=== PATIENT | female | born 1995 | race Caucasian/White ===

== ENCOUNTER 2020-06-09 09:54 | Outpatient (CLI) | payer OTHER, SELFPAY ==
[2020-06-09 11:05] LABS: Alanine Aminotransferase 35 U/L (4-35); Albumin Level 3.4 g/dL (3.5-5.1); Alkaline Phosphatase 78 U/L (38-126); Anion Gap 3 mmol/L (8-16); Aspartate Amino Transferase 27 U/L (14-36); Bilirubin,Total 0.2 mg/dL (0.2-1.3); Blood Urea Nitrogen 6 mg/dL (7-17); Calcium 8.9 mg/dL (8.4-10.2); Carbon Dioxide 24 mmol/L (22-30); Chloride 109 mmol/L (98-107); Estimated Glomerular Filt Rate > 60; Glucose 96 mg/dL (65-105); Potassium 4.1 mmol/L (3.4-5.0); Sodium 136 mmol/L (137-145)
== END 2020-06-09 09:55 | disposition home or self-care (01) ==
PROVIDERS: PCP Obstetrics & Gynecology; Visit Provider Obstetrics & Gynecology
DX: O16.9 Unspecified maternal hypertension, unspecified trimester (principal); Z3A.00 Weeks of gestation of pregnancy not specified
CPT/HCPCS: 36415; 80053

== ENCOUNTER 2020-09-30 00:11 | Inpatient (IN) | payer OTHER, SELFPAY ==
[2020-09-30] VITALS (40 sets, daily range): BP systolic 98–168; BP diastolic 37–104; PULSE 70–100; RESP 18; TEMP 36.1–36.6; BMI 44.1
--- NOTE | 2020-09-30 00:11 | LDADM ---
This patient, Libra Capellan, was admitted to Labor/Delivery/Recovery 109 on 09/30/20 at 00:11. Plans for labor, pain management and were discussed with patient. Patient/family oriented to hospital policies and general routines including ID bracelet, bed and alarms, visiting hours, pain management, procedures, bathroom and other care routines, personal items, smoking policy, room service/diet and guest tray routines, infant security routines, and visiting hours. Patient/Family are encouraged to report perceived risks to care and to ask questions if they do not understand what they are told or what they should do. See OBIX for further documentation.
[2020-09-30 01:25] LABS: Basophils Percent Auto 0.2 % (0.2-1.2); Eosinophils Absolute Auto 0.1 K/mm3 (0-0.3); Eosinophils Percent Auto 0.3 % (0-4.4); Hematocrit 35.4 % (37.0-47.0); Hemoglobin 11.5 g/dL (12.0-15.0); Immature Granulocyte Absolute 0.06 K/mm3 (0.00-0.031); Immature Granulocyte Percent A 0.3 % (0-0.5); Lymphocytes Absolute Auto 2.72 K/mm3 (0.9-3.2); Lymphocytes Percent Auto 15.5 % (18.3-44.2); Mean Corpuscular HGB Conc 32.5 g/dl (32-36); Mean Corpuscular Hemoglobin 29.6 pg (26-34); Mean Corpuscular Volume 91.2 fl (80-100); Monocytes Absolute Auto 0.7 K/mm3 (0.1-0.6); Monocytes Percent Auto 4.2 % (2.6-8.5); Neutrophils Percent Auto 79.5 % (45.5-73.1); Platelet Count Result 256 k/mm3 (150-375); Red Blood Count 3.88 M/mm3 (4.2-5.4); Red Cell Distribution Width 13.7 % (11.5-14.5); White Blood Count 17.6 K/mm3 (4.5-10.0)
[2020-09-30] MEDS: LACTATED RINGERS 1,000 ML 125 ML IV CONT ×2 (01:37→11:24)
[2020-09-30 01:41] LABS: Glucose Point of Care 104 mg/dl (65-105)
[2020-09-30 01:46] LABS: Amphetamine Screen Urine Negative (Negative); Barbiturate Screen Urine Negative (Negative); Benzodiazepines Screen Urine Negative (Negative); Cannabinoid Screen Urine Positive (Negative); Cocaine Screen Urine Negative (Negative); Methadone Screen Urine Negative (Negative); Opiate Screen Urine Negative (Negative); Phencyclidine Screen Urine Negative (Negative)
[2020-09-30] MEDS: DINOPROSTONE 10 MG VAG INSERT VAGINAL ×2 (01:58→17:38)
[2020-09-30] MEDS: AMPICILLIN 2 GM/NS 100 ML 2 GM/100 ML BAG IVPB (06:26)
--- NOTE | 2020-09-30 07:42 | WPDOBADMIT ---
Obstetrics - Admit Note Admission Note: record reviewed. No pertinent additions to the history and/or any subsequent changes in the physical findings that are not consistent with the expected course of the were found. Additions to the history and/or subsequent changes in the physical findings follow. None. cHTN and GDM. somewhat noncompliant, missed appts, refused insulin. FHT category 1. cervidil in. GBS pos, just started amp. AROM and low dose pit after cervidil out.
[2020-09-30 08:09] LABS: Glucose Point of Care 91 mg/dl (65-105)
[2020-09-30 08:09] LABS: Glucose Point of Care 93 mg/dl (65-105)
[2020-09-30 08:45] LABS: Rapid Plasma Reagin Non-Reactive (NonReactive)
[2020-09-30] MEDS: AMPICILLIN 1 GM/NS 50 ML 1 GM/50 ML BAG IVPB ×4 (10:25→22:58)
[2020-09-30 12:17] LABS: Glucose Point of Care 90 mg/dl (65-105)
--- NOTE | 2020-09-30 13:34 | WPDANESEPP ---
Anes - Eval Pre Procedure Procedure: labor epidural Date/Time: 09/30/20 13:34 Surgeon: Corby Preop Diagnosis: Pain during labor Pre Op Diagnosis: IOL Patient Data Age: 25 Gender: F Height: 5 ft 3 in Weight: 113 kg Last Vital Signs Temp 36.6 C 09/30/20 06:30 Pulse 100 09/30/20 13:00 BP 139/104 H 09/30/20 13:00 Allergies Allergy/AdvReac Type Severity Reaction Status Date / Time No Known Allergies Allergy Mild Verified 09/17/20 13:36 Home Medications Medication Instructions Recorded Confirmed Type prenat.vits,pierre,amq-hlgy-vxqpb 1 tablet PO DAILY 09/17/20 09/17/20 History [ #2] Laboratory Tests 09/30/20 09/30/20 09/30/20 01:11 01:11 01:11 WBC 17.6 K/mm3 H K/mm3 (4.5-10.0) RBC 3.88 M/mm3 L M/mm3 (4.2-5.4) Hgb 11.5 g/dL L g/dL (12.0-15.0) Hct 35.4 % L % (37.0-47.0) MCV 91.2 fl fl (80-100) MCH 29.6 pg pg (26-34) MCHC 32.5 g/dl g/dl (32-36) RDW 13.7 % % (11.5-14.5) Plt Count 256 k/mm3 k/mm3 (150-375) MPV 11.0 fl H fl (7.4-10.4) Immature Gran % (Auto) 0.3 % % (0-0.5) Neut % (Auto) 79.5 % H % (45.5-73.1) Lymph % (Auto) 15.5 % L % (18.3-44.2) Crook % (Auto) 4.2 % % (2.6-8.5) Eos % (Auto) 0.3 % % (0-4.4) Baso % (Auto) 0.2 % % (0.2-1.2) Lymph # (Auto) 2.72 K/mm3 K/mm3 (0.9-3.2) Crook # (Auto) 0.7 K/mm3 H K/mm3 (0.1-0.6) Eos # (Auto) 0.1 K/mm3 K/mm3 (0-0.3) Baso # (Auto) 0.0 K/mm3 K/mm3 (0.0-0.1) Abs Immat Gran (auto) 0.06 K/mm3 H K/mm3 (0.00-0.031) Absolute Neuts (auto) 14.0 K/mm3 H K/mm3 (1.3-6.7) Absolute Nucleated RBC 0.0 K/mm3 K/mm3 (0.0-0.012) Nucleated RBC % 0.0 % % (0.0-0.2) POC Capillary Glucose Urine Opiates Screen Urine Methadone Screen Ur Barbiturates Screen Ur Phencyclidine Scrn Ur Amphetamine Screen U Benzodiazepines Scrn Urine Cocaine Screen U Cannabinoids Screen RPR Non-reactive (NonReactive) Blood Type O Positive Antibody Screen Negative 09/30/20 09/30/20 09/30/20 01:11 01:36 04:06 WBC RBC Hgb Hct MCV MCH MCHC RDW Plt Count MPV Immature Gran % (Auto) Neut % (Auto) Lymph % (Auto) Crook % (Auto) Eos % (Auto) Baso % (Auto) Lymph # (Auto) Crook # (Auto) Eos # (Auto) Baso # (Auto) Abs Immat Gran (auto) Absolute Neuts (auto) Absolute Nucleated RBC Nucleated RBC % POC Capillary Glucose 104 mg/dl mg/dl 93 mg/dl mg/dl (65-105) (65-105) Urine Opiates Screen Negative (Negative) Urine Methadone Screen Negative (Negative) Ur Barbiturates Screen Negative (Negative) Ur Phencyclidine Scrn Negative (Negative) Ur Amphetamine Screen Negative (Negative) U Benzodiazepines Scrn Negative (Negative) Urine Cocaine Screen Negative (Negative) U Cannabinoids Screen Positive A (Negative) RPR Blood Type Antibody Screen 09/30/20 09/30/20 08:06 12:11 WBC RBC Hgb Hct MCV MCH MCHC RDW Plt Count MPV Immature Gran % (Auto) Neut % (Auto) Lymph % (Auto) Crook % (Auto) Eos % (Auto) Baso % (Auto) Lymph # (Auto) Crook # (Auto) Eos # (Auto) Baso # (Auto)
[2020-09-30 17:15] LABS: Glucose Point of Care 88 mg/dl (65-105)
[2020-09-30] MEDS: ACETAMINOPHEN 500 MG TABLET 1000 MG PO (22:57)
[2020-09-30] MEDS: ZOLPIDEM TARTRATE (*CRX) 5 MG TABLET PO (22:58)
[2020-09-30 23:37] LABS: Glucose Point of Care 80 mg/dl (65-105)
[2020-10-01] VITALS (127 sets, daily range): BP systolic 71–149; BP diastolic 23–98; PULSE 64–124; RESP 16–18; TEMP 36.2–36.8; O2SAT 95–100
[2020-10-01 02:49] LABS: Glucose Point of Care 83 mg/dl (65-105)
[2020-10-01] MEDS: AMPICILLIN 1 GM/NS 50 ML 1 GM/50 ML BAG IVPB ×3 (02:53→10:34)
[2020-10-01 06:19] LABS: Glucose Point of Care 88 mg/dl (65-105)
[2020-10-01] MEDS: OXYTOCIN 30 UNITS/NS 500 ML 30 UNITS/500 ML BAG IV CONT (07:04)
[2020-10-01] MEDS: fentaNYL CITRATE INJ (*CRX) 100 MCG/2 ML VIAL IV PUSH (08:12)
[2020-10-01] MEDS: LACTATED RINGERS 1,000 ML 999 ML IV CONT (08:13)
--- NOTE | 2020-10-01 08:13 | PM.OBPNLAB ---
Pain Control Date/time seen: 10/01/20 08:13 VSS Pt feeling contractions Cervix 3-4/50/-3 AROM moderate amount of clear odorless fluid Anticipate
[2020-10-01 10:01] LABS: Glucose Point of Care 87 mg/dl (65-105)
[2020-10-01 13:46] LABS: Glucose Point of Care 69 mg/dl (65-105)
--- NOTE | 2020-10-01 14:27 | P.PCNOB_ITS ---
OB - Delivery Note Procedure Delivery date: 10/01/20 Procedure: vaginal delivery events: Gestational Diabetes and Induced HTN Intrapartal events: None Induction method: AROM, per pitocin protocol and per cervidil protocol Delivery monitor: external FHT and external uterine Route of delivery: Laceration Description: None Specimen: Yes Quantitative Blood Loss (ml): 65 Anesthesia type: Epidural Disposition: floor Baby Date of : 10/01/20 Time of : 14:19 Weeks of gestation at delivery: 38 Infant gender: Female presentation: vertex cord vessel description: 3 Vessels and Clamped/Cut score one minute: 9 score five minutes: 9 Narrative: pick up and delivery driver, precipitous, cord clamped and cut as CNM arrived, placenta delivered w/o complication and mother and baby in stable condition
[2020-10-01] MEDS: OXYTOCIN 30 UNITS/NS 500 ML 30 UNITS/500 ML BAG 125 UNITS IV CONT (15:02)
[2020-10-01] MEDS: OXYTOCIN 10 UNITS/ML VIAL 20 UNITS IM (16:05)
[2020-10-01] MEDS: IBUPROFEN 600 MG TABLET PO (16:13)
--- NOTE | 2020-10-01 17:30 | PC.NURSE ---
Patient transferred to post room # 292 via wheelchair. Support person present. Oriented to unit, room, information board, rooming in, admission packet and security measures. Patient verbalizes understanding. PT received instructions and education through one to one discussion and mom baby care guide and demonstration. PT and fob recipients of such instructions. no barriers to learning identified
[2020-10-02 04:50] VITALS: BP 131/84; PULSE 88; RESP 16; TEMP 36.3; O2SAT 100
[2020-10-02] MEDS: IBUPROFEN 600 MG TABLET PO ×3 (04:57→17:19)
[2020-10-02 05:50] LABS: Hematocrit 32.8 % (37.0-47.0); Hemoglobin 10.8 g/dL (12.0-15.0)
--- NOTE | 2020-10-02 07:00 | PC.NURSE ---
PT introductions made and plan of care discussed per post , pain management, breast feeding, daily care activities. PT verbalized understanding of such care. PT received instructions and education per shift through one to one discussion, demonstration, mom baby care guide. PT shows no barriers to learning. She and her significant other will be recipients of education through the shift.
--- NOTE | 2020-10-02 07:42 | PM.OBPNVD ---
OB - PN: Subj Subjective Date/time seen: 10/02/20 07:42 Patient comments: no complaints baby status: doing well OB - PN: Obj Data Labs CBC & Chem 7: 10/02/20 05:02 Labs: Laboratory Results - last 24 hr 10/01/20 10/01/20 10/02/20 09:58 13:41 05:02 Hgb 10.8 L Hct 32.8 L POC Capillary Glucose 87 69 OB - PN A/P Plan day: 1 Plan: routine care Time Spent With Patient Time: Total time spent is greater than 50% in coordination of care (as documented) at patient's floor/unit and/or counseling patient: Time with patient: less than 15 minutes Review of Systems Review of Systems: All systems reviewed & are unremarkable except as noted in HPI and below Exam Narrative: Exam Narrative: Fundus firm and vaginal flow controlled. No lower ext redness, warmth, or edema. Negative homans. Denies h/a, v/d or e/p. Reflexes normal. Const: General: comfortable Chest: Breast/axilla inspection: normal inspection of the breasts Resp: Effort & Inspection: normal respiratory effort Cardio: Rate: regular rate GI: GI Palp: Yes Soft to palpation Psych: Appearance: grossly normal Affect: normal affect Attitude: cooperative Thought content: Yes Normal thought content present Judgement: Good judgement present (Psych)
[2020-10-02 08:20] VITALS: BP 130/76; PULSE 83; RESP 18; TEMP 36.7; O2SAT 100
[2020-10-02 11:00] VITALS: PULSE 82; RESP 18; O2SAT 98
[2020-10-02 11:40] VITALS: BP 128/64; PULSE 82; RESP 18; TEMP 36.7; O2SAT 98
[2020-10-02] MEDS: DOCUSATE SODIUM 100 MG CAPSULE PO ×2 (11:45→17:20)
--- NOTE | 2020-10-02 15:50 | WPDANLDPN2 ---
Anes-Prog Note L&D Date/Time: 10/02/20 15:50 Comfortable throughout: labor and delivery Neuraxial method: epidural Epidural/Spinal procedure site: clean & non-tender Neuro status: Neuro function grossly intact. Cardiovascular status: normal Respiratory status: normal Airway patency: baseline Mental status: baseline Post-Op hydration status: normal Vital Signs: Last Vital Signs Temp 36.7 C 10/02/20 11:40 Pulse 82 10/02/20 11:40 Resp 18 10/02/20 11:40 BP 128/64 10/02/20 11:40 Pulse Ox 98 10/02/20 11:40 Pain score (VAS): 0/10. Patient resting in bed at time of assessment, appears comfortable. I/O: Intake & Output 10/01/20 10/02/20 10/02/20 23:59 07:59 15:59 Intake Total 240 Output Total 450 Balance -450 240 Post-procedural complaints: none Patient feedback: Patient satisfied with anesthetic care.
[2020-10-02] MEDS: TETANUS,DIPHTHERIA,AC PERTUSSIS ADULT (0.5 ML) BOOSTRIX IM (18:05)
[2020-10-02 19:30] VITALS: BP 146/87; PULSE 85; RESP 16; TEMP 36.7; O2SAT 99
[2020-10-03] MEDS: IBUPROFEN 600 MG TABLET PO (04:29)
--- NOTE | 2020-10-03 07:29 | WPDOBADMIT ---
Obstetrics - Admit Note Admission Note: record reviewed. No pertinent additions to the history and/or any subsequent changes in the physical findings that are not consistent with the expected course of the were found. MIL GDM SVE 3-4/-2 AROM large amount of clear odorless fluid Additions to the history and/or subsequent changes in the physical findings follow. None.
--- NOTE | 2020-10-03 07:43 | PM.OBPNVD ---
OB - PN: Subj Subjective Date/time seen: 10/03/20 07:43 Patient comments: no complaints baby status: doing well OB - PN: Obj Data Labs CBC & Chem 7: 10/02/20 05:02 OB - PN A/P Plan day: 2 Plan: routine care and discharge home Time Spent With Patient Time: Total time spent is greater than 50% in coordination of care (as documented) at patient's floor/unit and/or counseling patient: Review of Systems Review of Systems: All systems reviewed & are unremarkable except as noted in HPI and below Exam Const: General: cooperative Nutritional Appearance: average body habitus Limitations: no limitations Psych: Affect: normal affect Attitude: cooperative Thought process: Normal thought process present Thought content: Yes Normal thought content present Insight: Good insight present (Psych) Judgement: Good judgement present (Psych)
--- NOTE | 2020-10-03 07:45 | P.DS_ITS ---
DS: Admitting Diagnosis Admitting Diagnosis Admitting Diagnosis: [facility] OB - DS: Summary OB Procedures : None OB Procedures Intrapartum: Spontaneous Vag Delivery OB Procedures: : None Time Spent with Patient Time attestation: Total time spent providing and/or coordinating discharge services: DS: Data Data Completed and Pending Pending studies at discharge: Pending at discharge 10/01/20 14:23 Surgical [PTH] Routine Discharge Plan Discharge Attending physician on discharge: Miky Thayer Consulting providers: Abimael Deleon Discharging Clinician: Sandhya Messina Patient Disposition: Home, Self-Care Activity: pelvic rest Diet: regular Patient Instructions: Antibiotic Form, How to Stop Smoking (DC) Stand Alone Forms: General Discharge Information Follow-up/Referrals: Sandhya Messina CNM [Certified Nurse Pesticide Use Medical Coordinator] - 4 Weeks Discharge Medications: Continued #2 Tablet 1 tablet PO DAILY RF: 0 Date of admission: 09/30/20 00:11 Primary Care Provider: PHYSICIAN,FINISHING MANAGER Admitting Provider: Evelyn Tavarez Attending physician on admission: Evelyn Tavarez Condition: Stable
[2020-10-03 09:10] VITALS: BP 137/80; PULSE 68; RESP 18; TEMP 36.6; O2SAT 100
--- NOTE | 2020-10-03 13:07 | PCCCNOTE ---
Addendum entered by ALEXANDRU Gomez 10/03/20 15:24: Received confirmation from [facility] that they will not take a report however they will contact pt. to determine if she is interested in home services. Original Note: Care Coordination Consult Met with pt. today during rounds. Pt. lives at home with JOHANA Bain. This is pt.'s second Baby. This is JOHANA Bain's first child. Pt. has all necessary equipment at home including a crib, carseat, clothing, diapers, and bottles. Pt. reports she will bottle feed as she currently smokes medicinal marijuana. Pt. plans to use [facility] services at discharge. Provided resources. Pt. reports she does use marijuana medicinally and does so safely. Pt. denies a reliance on the medication. Reports she has spoken to the [employer] and will bottlefeed at discharge. Baby was tested and is negative in urine testing for all substances. Meconium is pending. Did contact [facility] and completed report ID # [id number].
[2020-10-06 11:30] VITALS: BP 135/72; PULSE 73; RESP 20; TEMP 36.8; O2SAT 99
== END 2020-10-03 12:42 | disposition home or self-care (01) | DRG 560 ==
LOC: ANHLDR 01:26 → ANHOB2 10-01 17:39
PROVIDERS: Advanced Practice Midwife; Admitting Provider Obstetrics & Gynecology; Visit Provider Obstetrics & Gynecology
DX: O24.429 Gestational diabetes mellitus in childbirth, unspecified control (principal); Z37.0 Single live birth; Z3A.38 38 weeks gestation of pregnancy; O10.92 Unspecified pre-existing hypertension complicating childbirth; O36.8330 Maternal care for abnormalities of the fetal heart rate or rhythm, third trimester, not applicable or unspecified; O99.824 Streptococcus B carrier state complicating childbirth; O99.214 Obesity complicating childbirth; E66.01 Morbid (severe) obesity due to excess calories; O99.334 Smoking (tobacco) complicating childbirth; F17.210 Nicotine dependence, cigarettes, uncomplicated; Z91.19 Patient's noncompliance with other medical treatment and regimen; O99.324 Drug use complicating childbirth; F12.90 Cannabis use, unspecified, uncomplicated
CPT/HCPCS: 36415; 80307; 82948; 85014; 85018; 85025; 86592; 86850; 86900; 86901; 88307; 90715; A9270; J0290; J2590; J2795; J3010; J7120